=== PATIENT | female | born 1945 | race Caucasian/White ===

== ENCOUNTER 2017-11-03 13:14 | Emergency (ER) | payer MEDICARE, BC ==
[~2017-11-03] VITALS: Ht 157.5 cm; Wt 50.0 kg
[2017-11-03 13:18] VITALS: BP 122/59; PULSE 108; TEMP 98.4
[2017-11-03] MEDS ORDERED: PRINIVIL20 MG PO (13:21)
[2017-11-03] MEDS ORDERED: ASPIRIN 81M81 MG/TA2 PO (13:22)
[2017-11-03] MEDS ORDERED: NATURE'S BLE1000 MCG (13:22)
[2017-11-03] MEDS ORDERED: VITAMIN D31000 I1 PO (13:22)
[2017-11-03] MEDS ORDERED: PERCOCET 325 MG1 TA2 PO (14:17)
== END 2017-11-03 14:23 | disposition home or self-care (01) ==
LOC: COL.ER 13:14
DX: S00.83XA Contusion of other part of head, initial encounter (principal); C34.90 Malignant neoplasm of unspecified part of unspecified bronchus or lung; I10 Essential (primary) hypertension; J44.9 Chronic obstructive pulmonary disease, unspecified; Z79.82 Long term (current) use of aspirin; W22.01XA Walked into wall, initial encounter

== ENCOUNTER 2018-01-20 13:26 | Inpatient (IN) | payer MEDICARE, BC ==
[2018-01-20] VITALS (167 sets, daily range): BP systolic 104; BP diastolic 67; PULSE 119; TEMP 99.1; O2SAT 41–100
[~2018-01-20] VITALS: Ht 160 cm; Wt 57.8 kg
[~2018-01-20 13:26] MED LIST: ASPIRIN 81M81 MG/TA2 PO; NATURE'S BLE1000 MCG; PERCOCET 325 MG1 TA2 PO; PRINIVIL20 MG PO; VITAMIN D31000 I1 PO
[2018-01-20 14:05] LABS: HEMATOCRIT 38.7 % (37.0-47.0); HEMOGLOBIN 12.7 g/dl (12.5-16.0); MEAN CELL VOLUME 106 fl (80.0-100.0); MEAN CORPUSCULAR HEMOGLOBIN 35 pg (27.0-31.0); MEAN CORPUSCULAR HGB CONC 33 g/dl (33.0-37.0); MEAN PLATELET VOLUME 9.1 fl (7.4-10.4); PLATELET COUNT 208 K/mm3 (130-400); RED BLOOD COUNT 3.65 M/mm3 (4.10-5.30); REDCELL DISTRIBUTION WIDTH-CV 13.6 % (11.5-14.5)
[2018-01-20 14:17] LABS: ALANINE AMINOTRANSFERASE 204 U/L (9-52); ALBUMIN 4.1 gm/dL (3.5-5.0); ALKALINE PHOSPHATASE 123 U/L (50-136); ANION GAP 10 mmol/L (7-16); AST,SGOT 614 U/L (15-37); BILIRUBIN,TOTAL 1.6 mg/dL (0.0-1.0); BLOOD UREA NITROGEN 13 mg/dL (7-17); CALCIUM 9.3 mg/dL (8.4-10.2); CARBON DIOXIDE 29 mmol/L (22-30); CHLORIDE 103 mmol/L (98-107); CREATININE, serum 0.76 mg/dL (0.52-1.25); GLUCOSE 133 mg/dL (74-106); POTASSIUM 4.2 mmol/L (3.4-5.0); SODIUM 142 mmol/L (137-145)
[2018-01-20 14:21] LABS: BAND 19 % (0-10); HYPOCHROMIA 1+; LYMPHOCYTE 6 % (20.0-51.0); NEUTROPHILS 73 % (42.0-75.2); PLATELET ESTIMATE NORMAL (NORMAL)
[2018-01-20 14:23] LABS: C-REACTIVE PROTEIN < 0.5 mg/dL (0.0-0.9)
[2018-01-20 14:27] LABS: TROPONIN-I < 0.012 ng/mL (0.000-0.034)
[2018-01-20 15:42] LABS: LIPASE 32865 U/L (23-300)
[2018-01-20 19:48] LABS: COLLECTION METHOD CLEAN CATCH
[2018-01-20 19:55] LABS: MUCOUS Present /lpf; PH 5 (5-8); SQUAMOUS EPITHELIAL 0-2 /hpf; URINE APPEARANCE Clear; URINE BACTERIA None Seen /hpf; URINE BILIRUBIN Negative (NEGATIVE); URINE BLOOD Negative (NEGATIVE); URINE COLOR Yellow; URINE GLUCOSE Negative (NEGATIVE); URINE KETONE Negative (NEGATIVE); URINE LEUKOCYTE ESTERASE Negative (NEGATIVE); URINE NITRATE Negative (NEGATIVE); URINE PROTEIN(semi-quant) Negative (NEGATIVE); URINE RBC 0-2 /hpf; URINE UROBILINOGEN Negative (NEGATIVE)
[2018-01-20 20:08] LABS: ARTERIAL BLD GAS O2 SATURATION 92.6 % (92-100); ARTERIAL BLD GAS TCO2 CT 26.6; ARTERIAL BLOOD GAS BASE EXCESS -3.7 (-2-2); ARTERIAL BLOOD GAS HCO3 24.8 meq/L (22-26); ARTERIAL BLOOD GAS PCO2 61.2 mmHg (35-45); ARTERIAL BLOOD GAS PO2 73.9 mmHg (80-100); ARTERIAL BLOOD GAS pH 7.23 (7.35-7.45)
[2018-01-20] MEDS ORDERED: VENTOLIN0.09 MG IH (21:05)
[2018-01-20] MEDS ORDERED: ALBUTEROL0.83 MG/ML IH (21:06)
[2018-01-20 21:29] LABS: ARTERIAL BLD GAS TCO2 CT 25.2; ARTERIAL BLOOD GAS BASE EXCESS -3.7 (-2-2); ARTERIAL BLOOD GAS HCO3 23.6 meq/L (22-26); ARTERIAL BLOOD GAS PCO2 52.4 mmHg (35-45); ARTERIAL BLOOD GAS PO2 89.4 mmHg (80-100); ARTERIAL BLOOD GAS pH 7.27 (7.35-7.45)
[2018-01-20 22:51] LABS: ARTERIAL BLD GAS O2 SATURATION 97.7 % (92-100); ARTERIAL BLD GAS TCO2 CT 23.3; ARTERIAL BLOOD GAS BASE EXCESS -5.4 (-2-2); ARTERIAL BLOOD GAS HCO3 21.8 meq/L (22-26); ARTERIAL BLOOD GAS PCO2 49.8 mmHg (35-45); ARTERIAL BLOOD GAS pH 7.26 (7.35-7.45)
[2018-01-20 22:52] LABS: ARTERIAL BLOOD GAS PO2 126.8 mmHg (80-100)
[2018-01-20 22:54] LABS: INR 1.1 (0.8-3.0)
[2018-01-20 22:59] LABS: SALICYLATE < 1.0 mg/dL
[2018-01-20 23:09] LABS: TROPONIN-I < 0.012 ng/mL (0.000-0.034)
[2018-01-21] VITALS (1034 sets, daily range): BP systolic 86–149; BP diastolic 52–97; PULSE 84–103; TEMP 97.9–100; O2SAT 84–100
[2018-01-21 01:15] LABS: ARTERIAL BLD GAS O2 SATURATION 88.3 % (92-100); ARTERIAL BLOOD GAS BASE EXCESS -7.5 (-2-2); ARTERIAL BLOOD GAS HCO3 18.7 meq/L (22-26); ARTERIAL BLOOD GAS PCO2 40.5 mmHg (35-45); ARTERIAL BLOOD GAS PO2 58.1 mmHg (80-100); ARTERIAL BLOOD GAS pH 7.28 (7.35-7.45)
[2018-01-21 02:50] LABS: MEAN CELL VOLUME 107 fl (80.0-100.0); MEAN CORPUSCULAR HGB CONC 32 g/dl (33.0-37.0); MEAN PLATELET VOLUME 9.2 fl (7.4-10.4); PLATELET COUNT 160 K/mm3 (130-400); REDCELL DISTRIBUTION WIDTH-CV 14.1 % (11.5-14.5)
[2018-01-21 02:52] LABS: ARTERIAL BLD GAS O2 SATURATION 95.6 % (92-100); ARTERIAL BLOOD GAS BASE EXCESS -6.8 (-2-2); ARTERIAL BLOOD GAS HCO3 18.9 meq/L (22-26); ARTERIAL BLOOD GAS PCO2 38.4 mmHg (35-45); ARTERIAL BLOOD GAS PO2 84.7 mmHg (80-100); ARTERIAL BLOOD GAS pH 7.31 (7.35-7.45)
[2018-01-21 02:56] LABS: HEMATOCRIT 33.3 % (37.0-47.0); HEMOGLOBIN 10.6 g/dl (12.5-16.0); MEAN CORPUSCULAR HEMOGLOBIN 34 pg (27.0-31.0)
[2018-01-21 02:59] LABS: ALBUMIN 2.7 gm/dL (3.5-5.0); BILIRUBIN,TOTAL 0.8 mg/dL (0.0-1.0); CALCIUM 7.6 mg/dL (8.4-10.2); CREATININE, serum 0.87 mg/dL (0.52-1.25); MAGNESIUM 1.4 mg/dL (1.6-2.3); PHOSPHOROUS 3.9 mg/dL (2.5-4.5); POTASSIUM 3.9 mmol/L (3.4-5.0); TOTAL PROTEIN 5.2 gm/dL (6.4-8.2)
[2018-01-21 03:11] LABS: INR 1.2 (0.8-3.0); PROTHROMBIN TIME 14.2 SECONDS (9.7-12.8)
[2018-01-21 03:53] LABS: BAND 50 % (0-10); LYMPHOCYTE 2 % (20.0-51.0); NEUTROPHILS 45 % (42.0-75.2); PLATELET ESTIMATE NORMAL (NORMAL)
[2018-01-21 05:12] LABS: ARTERIAL BLD GAS TCO2 CT 20.3; ARTERIAL BLOOD GAS BASE EXCESS -5.9 (-2-2); ARTERIAL BLOOD GAS HCO3 19.2 meq/L (22-26); ARTERIAL BLOOD GAS PO2 77.4 mmHg (80-100); ARTERIAL BLOOD GAS pH 7.34 (7.35-7.45)
[2018-01-21 11:52] LABS: ARTERIAL BLD GAS O2 SATURATION 95.8 % (92-100); ARTERIAL BLD GAS TCO2 CT 18.2; ARTERIAL BLOOD GAS BASE EXCESS -6.8 (-2-2); ARTERIAL BLOOD GAS HCO3 17.3 meq/L (22-26); ARTERIAL BLOOD GAS PCO2 30.4 mmHg (35-45); ARTERIAL BLOOD GAS PO2 83.5 mmHg (80-100); ARTERIAL BLOOD GAS pH 7.37 (7.35-7.45)
[2018-01-21 17:22] LABS: MAGNESIUM 2.3 mg/dL (1.6-2.3); POTASSIUM 3.8 mmol/L (3.4-5.0)
[2018-01-21 18:16] LABS: ARTERIAL BLD GAS O2 SATURATION 94.2 % (92-100); ARTERIAL BLD GAS TCO2 CT 16.9; ARTERIAL BLOOD GAS BASE EXCESS -8.5 (-2-2); ARTERIAL BLOOD GAS PCO2 29.8 mmHg (35-45); ARTERIAL BLOOD GAS PO2 80.5 mmHg (80-100); ARTERIAL BLOOD GAS pH 7.35 (7.35-7.45)
[2018-01-22] VITALS (1105 sets, daily range): BP systolic 94–138; BP diastolic 65–83; PULSE 61–89; TEMP 97.9–98.7; O2SAT 51–100
[2018-01-22 05:18] LABS: ARTERIAL BLD GAS O2 SATURATION 96.5 % (92-100); ARTERIAL BLD GAS TCO2 CT 18.1; ARTERIAL BLOOD GAS BASE EXCESS -6.4 (-2-2); ARTERIAL BLOOD GAS HCO3 17.3 meq/L (22-26); ARTERIAL BLOOD GAS PCO2 28.2 mmHg (35-45); ARTERIAL BLOOD GAS PO2 93.8 mmHg (80-100); ARTERIAL BLOOD GAS pH 7.41 (7.35-7.45)
[2018-01-22 05:37] LABS: MEAN CELL VOLUME 106 fl (80.0-100.0); MEAN CORPUSCULAR HGB CONC 32 g/dl (33.0-37.0); MEAN PLATELET VOLUME 9.7 fl (7.4-10.4); PLATELET COUNT 148 K/mm3 (130-400); RED BLOOD COUNT 2.91 M/mm3 (4.10-5.30); REDCELL DISTRIBUTION WIDTH-CV 14.5 % (11.5-14.5)
[2018-01-22 05:40] LABS: INR 1.4 (0.8-3.0); PROTHROMBIN TIME 15.8 SECONDS (9.7-12.8)
[2018-01-22 05:44] LABS: HEMATOCRIT 30.7 % (37.0-47.0); HEMOGLOBIN 9.9 g/dl (12.5-16.0); MEAN CORPUSCULAR HEMOGLOBIN 34 pg (27.0-31.0)
[2018-01-22 05:45] LABS: ALBUMIN 2.6 gm/dL (3.5-5.0); BILIRUBIN,TOTAL 0.3 mg/dL (0.0-1.0); CALCIUM 8.2 mg/dL (8.4-10.2); CREATININE, serum 0.88 mg/dL (0.52-1.25); MAGNESIUM 2.3 mg/dL (1.6-2.3); PHOSPHOROUS 3.2 mg/dL (2.5-4.5); POTASSIUM 3.9 mmol/L (3.4-5.0); TOTAL PROTEIN 5.2 gm/dL (6.4-8.2)
[2018-01-22 06:15] LABS: BAND 14 % (0-10); LYMPHOCYTE 2 % (20.0-51.0); METAMYELOCYTE 1 % (0-0); NEUTROPHILS 80 % (42.0-75.2)
[2018-01-22 06:16] LABS: ANISOCYTOSIS 1+; PLATELET ESTIMATE NORMAL (NORMAL)
[2018-01-22 14:32] LABS: ARTERIAL BLD GAS O2 SATURATION 97.6 % (92-100); ARTERIAL BLOOD GAS BASE EXCESS -3.5 (-2-2); ARTERIAL BLOOD GAS PCO2 30.7 mmHg (35-45); ARTERIAL BLOOD GAS PO2 119.9 mmHg (80-100); ARTERIAL BLOOD GAS pH 7.43 (7.35-7.45)
[2018-01-22 20:22] LABS: ARTERIAL BLD GAS O2 SATURATION 97.1 % (92-100); ARTERIAL BLD GAS TCO2 CT 20.8; ARTERIAL BLOOD GAS BASE EXCESS -4.9 (-2-2); ARTERIAL BLOOD GAS HCO3 19.8 meq/L (22-26); ARTERIAL BLOOD GAS PCO2 34.4 mmHg (35-45); ARTERIAL BLOOD GAS PO2 107.6 mmHg (80-100); ARTERIAL BLOOD GAS pH 7.38 (7.35-7.45)
[2018-01-23] VITALS (1023 sets, daily range): BP systolic 107–156; BP diastolic 70–101; PULSE 57–100; TEMP 97.2–99.8; O2SAT 40–100
[2018-01-23 05:10] LABS: ARTERIAL BLD GAS O2 SATURATION 95.6 % (92-100); ARTERIAL BLD GAS TCO2 CT 20.1; ARTERIAL BLOOD GAS BASE EXCESS -5.5 (-2-2); ARTERIAL BLOOD GAS PCO2 33.8 mmHg (35-45); ARTERIAL BLOOD GAS PO2 89.7 mmHg (80-100); ARTERIAL BLOOD GAS pH 7.37 (7.35-7.45)
[2018-01-23 05:27] LABS: MEAN CELL VOLUME 107 fl (80.0-100.0); MEAN CORPUSCULAR HGB CONC 32 g/dl (33.0-37.0); MEAN PLATELET VOLUME 10.1 fl (7.4-10.4); PLATELET COUNT 120 K/mm3 (130-400); RED BLOOD COUNT 2.68 M/mm3 (4.10-5.30); REDCELL DISTRIBUTION WIDTH-CV 14.8 % (11.5-14.5)
[2018-01-23 05:30] LABS: HEMATOCRIT 28.7 % (37.0-47.0); HEMOGLOBIN 9.2 g/dl (12.5-16.0); MEAN CORPUSCULAR HEMOGLOBIN 34 pg (27.0-31.0)
[2018-01-23 05:38] LABS: INR 1.1 (0.8-3.0); PROTHROMBIN TIME 12.4 SECONDS (9.7-12.8)
[2018-01-23 05:39] LABS: MAGNESIUM 2.3 mg/dL (1.6-2.3); PHOSPHOROUS 3.1 mg/dL (2.5-4.5)
[2018-01-23 05:40] LABS: ALBUMIN 2.5 gm/dL (3.5-5.0); BILIRUBIN,TOTAL 0.2 mg/dL (0.0-1.0); CALCIUM 8.4 mg/dL (8.4-10.2); CREATININE, serum 0.72 mg/dL (0.52-1.25); POTASSIUM 4.1 mmol/L (3.4-5.0); TOTAL PROTEIN 5.1 gm/dL (6.4-8.2)
[2018-01-23 06:05] LABS: BAND 1 % (0-10); HYPOCHROMIA 1+; LYMPHOCYTE 3 % (20.0-51.0); NEUTROPHILS 96 % (42.0-75.2); PLATELET ESTIMATE NORMAL (NORMAL)
[2018-01-23 18:13] LABS: ARTERIAL BLD GAS O2 SATURATION 91.5 % (92-100); ARTERIAL BLOOD GAS BASE EXCESS -2.1 (-2-2); ARTERIAL BLOOD GAS HCO3 23.6 meq/L (22-26); ARTERIAL BLOOD GAS PCO2 44.3 mmHg (35-45); ARTERIAL BLOOD GAS PO2 71.1 mmHg (80-100); ARTERIAL BLOOD GAS pH 7.35 (7.35-7.45)
[2018-01-24] VITALS (836 sets, daily range): BP systolic 149–181; BP diastolic 69–107; PULSE 83–96; TEMP 98–98.9; O2SAT 65–100
[2018-01-24 05:11] LABS: ARTERIAL BLD GAS O2 SATURATION 92.5 % (92-100); ARTERIAL BLD GAS TCO2 CT 23.4; ARTERIAL BLOOD GAS BASE EXCESS -3.3 (-2-2); ARTERIAL BLOOD GAS HCO3 22.1 meq/L (22-26); ARTERIAL BLOOD GAS PCO2 41.4 mmHg (35-45); ARTERIAL BLOOD GAS PO2 69.7 mmHg (80-100); ARTERIAL BLOOD GAS pH 7.35 (7.35-7.45)
[2018-01-24 06:01] LABS: MAGNESIUM 2.1 mg/dL (1.6-2.3); PHOSPHOROUS 2.5 mg/dL (2.5-4.5)
[2018-01-24 07:48] LABS: MEAN CELL VOLUME 106 fl (80.0-100.0); MEAN CORPUSCULAR HGB CONC 32 g/dl (33.0-37.0); MEAN PLATELET VOLUME 10.5 fl (7.4-10.4); PLATELET COUNT 138 K/mm3 (130-400); REDCELL DISTRIBUTION WIDTH-CV 14.5 % (11.5-14.5)
[2018-01-24 07:49] LABS: HEMATOCRIT 30.8 % (37.0-47.0); HEMOGLOBIN 9.8 g/dl (12.5-16.0); MEAN CORPUSCULAR HEMOGLOBIN 34 pg (27.0-31.0)
[2018-01-24 07:57] LABS: CALCIUM 8.6 mg/dL (8.4-10.2); CREATININE, serum 0.65 mg/dL (0.52-1.25); POTASSIUM 3.2 mmol/L (3.4-5.0)
[2018-01-24 08:00] LABS: BAND 6 % (0-10); LYMPHOCYTE 3 % (20.0-51.0); NEUTROPHILS 86 % (42.0-75.2); PLATELET ESTIMATE NORMAL (NORMAL)
[2018-01-24 08:03] LABS: HYPOCHROMIA 2+
[2018-01-24 20:25] LABS: ARTERIAL BLD GAS TCO2 CT 32.4; ARTERIAL BLOOD GAS BASE EXCESS 7.4 (-2-2); ARTERIAL BLOOD GAS HCO3 31.2 meq/L (22-26); ARTERIAL BLOOD GAS PCO2 40.6 mmHg (35-45); ARTERIAL BLOOD GAS PO2 57.5 mmHg (80-100)
[2018-01-24 22:59] LABS: CALCIUM 8.8 mg/dL (8.4-10.2); CREATININE, serum 0.62 mg/dL (0.52-1.25)
[2018-01-24 23:01] LABS: POTASSIUM 2.6 mmol/L (3.4-5.0)
== END 2018-01-25 02:50 | disposition short-term general hospital (02) | DRG 871 ==
LOC: COL.ER 13:26 → ICU 15:55 → MEDICAL 01-24 16:01
PROVIDERS: Emergency Medicine; Family Medicine; Internal Medicine Pulmonary Disease; Nurse Practitioner; Nurse Practitioner Family
PROC: 0BH18EZ Insertion of Endotracheal Airway into Trachea, Via Natural or Artificial Opening Endoscopic (ICD-10-PCS; principal; 2018-01-20)
PROC: 5A1945Z Respiratory Ventilation, 24-96 Consecutive Hours (ICD-10-PCS; 2018-01-20)
PROC: 0FJD8ZZ Inspection of Pancreatic Duct, Via Natural or Artificial Opening Endoscopic (ICD-10-PCS; 2018-01-21)
PROC: 0FJB8ZZ Inspection of Hepatobiliary Duct, Via Natural or Artificial Opening Endoscopic (ICD-10-PCS; 2018-01-21)
PROC: BF111ZZ Fluoroscopy of Biliary and Pancreatic Ducts using Low Osmolar Contrast (ICD-10-PCS; 2018-01-21)
DX: A41.59 Other Gram-negative sepsis (principal); R65.21 Severe sepsis with septic shock; K85.10 Biliary acute pancreatitis without necrosis or infection; J96.01 Acute respiratory failure with hypoxia; J96.02 Acute respiratory failure with hypercapnia; E87.4 Mixed disorder of acid-base balance; E44.0 Moderate protein-calorie malnutrition; J90 Pleural effusion, not elsewhere classified; B96.1 Klebsiella pneumoniae [K. pneumoniae] as the cause of diseases classified elsewhere; K80.50 Calculus of bile duct without cholangitis or cholecystitis without obstruction; I10 Essential (primary) hypertension; J44.9 Chronic obstructive pulmonary disease, unspecified; K58.9 Irritable bowel syndrome, unspecified; Z85.110 Personal history of malignant carcinoid tumor of bronchus and lung; Z87.891 Personal history of nicotine dependence; E87.6 Hypokalemia; E86.0 Dehydration
CPT/HCPCS: 99223-AI; 99233-AI; A4217; A4314; C1751; C1769; J0330; J0360; J0610; J1170; J1644; J1650; J1720; J1956; J2185; J2270; J2405; J2543; J2704; J3010; J3370; J3475; J3480; J7030; J7050; J7060; J7120; J7131; Q9967

== ENCOUNTER 2019-12-05 11:15 | Emergency (ER) | payer MEDICARE, BC ==
[~2019-12-05] VITALS: Ht 160 cm; Wt 49.1 kg
[~2019-12-05 11:15] MED LIST changes: +ALBUTEROL0.83 MG/ML IH; +VENTOLIN0.09 MG IH
[2019-12-05 11:26] VITALS: TEMP 99.1
[2019-12-05 12:49] VITALS: BP 152/94; PULSE 100
== END 2019-12-05 12:49 | disposition home or self-care (01) ==
LOC: COL.ER 11:15
DX: S01.01XA Laceration without foreign body of scalp, initial encounter (principal); J44.9 Chronic obstructive pulmonary disease, unspecified; R40.2412 Glasgow coma scale score 13-15, at arrival to emergency department; Z79.82 Long term (current) use of aspirin; W01.0XXA Fall on same level from slipping, tripping and stumbling without subsequent striking against object, initial encounter